=== PATIENT | female | born 1995 | race Caucasian/White ===

== ENCOUNTER 2017-01-30 15:32 | Emergency (ER) | payer OTHER ==
--- NOTE | 2017-01-30 16:14 | ER Document Report ---
Doctor's Note Notes: 01/30/17 16:14 Patient noted to have 2 syncopal episodes states she keeps falling to the left side I have greeted and performed a rapid initial assessment of this patient. A comprehensive ED assessment and evaluation of the patient, analysis of test results and completion of the medical decision making process will be conducted by additional ED providers. PHYSICAL EXAMINATION: GENERAL: Well-appearing, well-nourished and in no acute distress. HEAD: Atraumatic, normocephalic. EYES: Pupils equal round extraocular movements intact, conjunctiva are normal. ENT: Nares patent NECK: Normal range of motion LUNGS: No respiratory distress Musculoskeletal: Normal range of motion NEUROLOGICAL: Patient stood up and fell immediately to the left PSYCH: Normal mood, normal affect. SKIN: Warm, Dry, normal turgor, no rashes or lesions noted.
--- NOTE | 2017-01-30 16:38 | RADIOLOGY REPORT (SQ) ---
EXAM DESCRIPTION: CT HEAD WITHOUT COMPLETED DATE/TIME: 01/30/2017 4:21 pm REASON FOR STUDY: falling to left side COMPARISON: None. TECHNIQUE: Axial images acquired through the brain without intravenous contrast. Images reviewed wi th bone, brain and subdural windows. Images stored on PACS. All CT scanners at this facility use dose modulation, iterative reconstruction, and/or weight based d osing when appropriate to reduce radiation dose to as low as reasonably achievable (ALARA). [facility]: Dose Right [facility]: CareDose [facility]: Dose Right [facility]: Teradose 4D [facility]: [employer] RADIATION DOSE: Up-to-date CT equipment and radiation dose reduction techniques were employed. CTDIv ol: 64.6 mGy. DLP: 1163 mGy-cm. mGy. LIMITATIONS: None. FINDINGS: VENTRICLES: Normal size and contour. CEREBRUM: No masses. No hemorrhage. No midline shift. Normal bonds/white matter differentiation. N o evidence for acute infarction. CEREBELLUM: No masses. No hemorrhage. No alteration of density. No evidence for acute infarction. EXTRAAXIAL SPACES: No fluid collections. No masses. ORBITS AND GLOBE: No intra- or extraconal masses. Normal contour of globe without masses. CALVARIUM: No fracture. PARANASAL SINUSES: No fluid or mucosal thickening. SOFT TISSUES: No mass or hematoma. OTHER: No other significant finding. IMPRESSION: No acute intracranial finding. TECHNICAL DOCUMENTATION: JOB ID: [id number] Quality ID # [id number]: Final reports with documentation of one or more dose reduction techniques (e.g., Au tomated exposure control, adjustment of the mA and/or kV according to patient size, use of iterative reconstruction technique) 2010 [employer]- All Rights Reserved
--- NOTE | 2017-01-30 16:40 | RADIOLOGY REPORT (SQ) ---
EXAM DESCRIPTION: CHEST SINGLE VIEW COMPLETED DATE/TIME: 01/30/2017 4:27 pm REASON FOR STUDY: falling to left side COMPARISON: None. EXAM PARAMETERS: NUMBER OF VIEWS: One view. TECHNIQUE: Single frontal radiographic view of the chest acquired. RADIATION DOSE: NA LIMITATIONS: None. FINDINGS: LUNGS AND PLEURA: No opacities, masses or pneumothorax. No pleural effusion. MEDIASTINUM AND HILAR STRUCTURES: No masses. Contour normal. HEART AND VASCULAR STRUCTURES: Heart normal in size. Normal vasculature. BONES: No acute findings. HARDWARE: None in the chest. OTHER: No other significant finding. IMPRESSION: NO ACUTE RADIOGRAPHIC FINDING IN THE CHEST. TECHNICAL DOCUMENTATION: JOB ID: [id number]
[2017-01-30 16:47] LABS: ABSOLUTE EOSINOPHILS # (AUTO) 0.1 10^3/uL (0.0-0.6); ABSOLUTE LYMPHOCYTES (AUTO) 2.7 10^3/uL (0.5-4.7); ABSOLUTE MONOCYTES (AUTO) 0.6 10^3/uL (0.1-1.4); ABSOLUTE NEUT (AUTO) 2.5 10^3/uL (1.7-8.2); BASOPHILS % (AUTO) 0.5 % (0-2); EOSINOPHILS % (AUTO) 1.2 % (0-6); HEMATOCRIT 38.1 % (36.0-47.0); HGB HCT DIFFERENCE 0.9; MEAN CORPUSCULAR HEMOGLOBIN 30.2 pg (27.0-33.4); MEAN CORPUSCULAR VOLUME 89 fl (80-97); MONOCYTES % (AUTO) 9.8 % (3-13); RED CELL DISTRIBUTION WIDTH 12.8 % (11.5-14.0); SEGMENTED NEUTROPHILS % (AUTO) 42.5 % (42-78); WHITE BLOOD COUNT 5.8 10^3/uL (4.0-10.5)
[2017-01-30 16:51] LABS: PROTHROMBIN TIME 12.2 SEC (11.4-15.4)
[2017-01-30 16:52] LABS: PARTIAL THROMBOPLASTIN TIME 28.1 SEC (23.5-35.8)
[2017-01-30] MEDS ORDERED: NORMAL SALINE 1000 ML 1,000 ML IV ONE ×2 (16:55→18:32)
--- NOTE | 2017-01-30 16:56 | ER Document Report ---
ED Syncope and Near Syncope - General Information source: Patient TRAVEL OUTSIDE OF THE [place] IN LAST 30 DAYS: No - HPI Patient complains to provider of: Fainting Symptoms prior to episode: No: Headache, Nausea/vomiting Current symptoms: Other - see above <WYATT HEWITT - Last Filed: 01/30/17 20:52> <REAGANKERRI SANDRA - Last Filed: 01/30/17 23:32> - General Chief Complaint: Syncope Stated Complaint: SYNCOPE Time Seen by Provider: 01/30/17 16:13 Notes: Patient is a 21 year old female who presents to the ED with complaints of 2 syncopal episodes where patient fell to the left prior to arrival today. Patient states the first episode was while she was bent over and the second was while she was walking and she lost her vision causing her to fall into the doorway. Patient states she has never had this in the past. Patient denies any injuries from the falls. Patient has a history of hearing loss and is suppose to wear hearing aids in her bilateral ears but is currently only wearing one in the left secondary to her dog eating her right one. Patient states she has been without her right hearing aid for the past year but she is currently working on getting a replacement. Patient denies a feeling a fullness in her ears or ear pain and states she doesn't normally have fluid behind her ear drums. Patient has been on depression and anxiety medication for the past 12 years and denies any recent changes. Patient has had tubes in her ears as an infant. Patient denies any nausea, vomiting, diarrhea, urinary symptoms, back pain, headache, or any chance of . Patient states she is starting to feel "some" better now but the initial onset of her symptoms was 2.5 hours ago. Patient states her normal blood pressure is 120/60 and states her blood pressure after her syncopal episodes was 160/90. No other concerns or complaints at this time. (WYATT HEWITT) Past Medical History - General Information source: Patient - Social History Smoking Status: Unknown if Ever Smoked Family History: None Patient has suicidal ideation: No Patient has homicidal ideation: No EENT Medical History: Reports: Other - hearing loss Renal/ Medical History: Denies: Hx Peritoneal Dialysis Psychiatric Medical History: Reports: Hx Depression <WYATT HEWITT - Last Filed: 01/30/17 20:52> Review of Systems - Review of Systems Constitutional: No symptoms reported EENT: No symptoms reported, Double vision. denies: Ear pain Cardiovascular: See HPI, Syncope Respiratory: No symptoms reported Gastrointestinal: No symptoms reported. denies: Diarrhea, Nausea, Vomiting Genitourinary: See HPI. denies: Burning, Dysuria, Frequency, Hematuria, Incontinence, Urgency Female Genitourinary: See HPI. denies: Musculoskeletal: See HPI. denies: Back pain Skin: No symptoms reported Hematologic/Lymphatic: No symptoms reported Neurological/Psychological: See HPI. denies: Headaches <WYATT HEWITT - Last Filed: 01/30/17 20:52> Physical Exam - Vital signs Interpretation: Normal - General General appearance: Appears well, Alert - HEENT Head: Normocephalic, Atraumatic Eyes: Normal Pupils: PERRL Tympanic membrane: Other - Fluid behind left ear with fluid level. Hearing aid - Respiratory Respiratory status: No respiratory distress Chest status: Nontender Breath sounds: Normal Chest palpation: Normal - Cardiovascular Rhythm: Regular Heart sounds: Normal auscultation Murmur: No - Abdominal Inspection: Normal Distension: No distension Bowel sounds: Normal Tenderness: Nontender Organomegaly: No organomegaly - Back Back: Normal, Nontender - Extremities General upper extremity: Normal inspection, Nontender, Normal color, Normal ROM , Normal temperature General lower extremity: Normal inspection, Nontender, Normal color, Normal ROM , Normal temperature, Normal weight bearing. No: Lillian's sign - Neurological Neuro grossly intact: Yes Cognition: Normal Orientation: AAOx4 [place] Coma Scale Eye Opening: Spontaneous [place] Coma Scale Verbal: Oriented [place] Coma Scale Motor: Obeys Commands [place] Coma Scale Total: 15 Speech: Normal Motor strength normal: LUE, RUE, LLE, RLE Sensory: Normal - Psychological Associated symptoms: Normal affect, Normal mood - Skin Skin Temperature: Warm Skin Moisture: Dry Skin Color: Normal <KERRI KIRK - Last Filed: 01/30/17 23:32> - Vital signs Vitals: Pulse Resp BP Pulse Ox 69 14 112/70 99 01/30/17 15:47 01/30/17 15:47 01/30/17 15:47 01/30/17 15:47 Course - Laboratory Result Diagrams: 01/30/17 16:35 01/30/17 16:35 <WYATT HEWITT - Last Filed: 01/30/17 20:52> - Laboratory Result Diagrams: 01/30/17 16:35 01/30/17 16:35 <KERRI KIRK - Last Filed: 01/30/17 23:32> - Re-evaluation Re-evalutation: 01/30/17 19:53 Patient states her symptoms have improved and the room is no longer spinning. Patient received Meclazine. 01/30/17 20:52 Patient is improved and would like to be discharged home. (WYATT HEWITT) No acute findings on imaging or blood work. Patient feels better after meclizine. Of note, she is only wearing one hearing aid at this time in the left ear which has some fluid behind it. This could be contributing to vertigo. Patient is instructed to take meclizine. She will be given a work note and is to follow-up with her doctor. Stable for discharge. (KERRI KIRK) - Vital Signs Vital signs: Temp Pulse Resp BP Pulse Ox 72 17 103/65 99 01/30/17 20:13 01/30/17 21:01 01/30/17 21:01 01/30/17 21:01 - Laboratory Laboratory results interpreted by me: 01/30/17 01/30/17 16:35 20:25 Lymphocytes % 46.0 H Urine Blood MODERATE H Discharge <WYATT HEWITT - Last Filed: 01/30/17 20:52> <KERRI KIRK - Last Filed: 01/30/17 23:32> - Discharge Clinical Impression: Pre-syncope Condition: Stable Disposition: HOME, SELF-CARE Instructions: Near Syncopal Episode ([facility]), Vertigo ([facility]) Prescriptions: Meclizine HCl 12.5 mg PO TID #30 tablet Forms: Return to Work Referrals: HARSHAD GUERRA PA-C [Primary Care Provider] - Follow up tomorrow Scribe Attestation: 01/30/17 23:32 I personally performed the services described in the documentation, reviewed and edited the documentation which was dictated to the scribe in my presence, and it accurately records my words and actions. (KERRI KIRKibe Documentation - Scribe Written by Shayan:: shayan Arora, 01/30/2017 acting as scribe for :: Reagan <WYATT HEWITT - Last Filed: 01/30/17 20:52>
[2017-01-30 17:04] LABS: ALANINE AMINOTRANSFERASE 30 U/L (9-52); ALBUMIN 3.5 g/dL (3.5-5.0); ALKALINE PHOSPHATASE 38 U/L (38-126); ANION GAP 6 (5-19); ASPARTATE AMINO TRANSFERASE 24 U/L (14-36); BILIRUBIN,DIRECT 0.2 mg/dL (0.0-0.4); BILIRUBIN,TOTAL 0.3 mg/dL (0.2-1.3); BLOOD UREA NITROGEN 9 mg/dL (7-20); CALCIUM 8.9 mg/dL (8.4-10.2); CARBON DIOXIDE 26 mmol/L (22-30); CHLORIDE 106 mmol/L (98-107); CREATINE KINASE 75 U/L (30-135); CREATININE RESULT 0.76 mg/dL (0.52-1.25); GLUCOSE 82 mg/dL (75-110); POTASSIUM 3.7 mmol/L (3.6-5.0); SODIUM 138.3 mmol/L (137-145); TOTAL PROTEIN 6.6 g/dL (6.3-8.2)
[2017-01-30 17:16] LABS: CREATINE KINASE MB 0.56 ng/mL (<4.55)
[2017-01-30 17:17] LABS: TROPONIN I < 0.012 ng/mL
[2017-01-30] MEDS ORDERED: MECLIZINE HCL 12.5 MG TABLET PO ONE (17:46)
--- NOTE | 2017-01-30 17:58 | EKG REPORT ---
SEVERITY:- NORMAL ECG - SINUS RHYTHM : Confirmed by: Tani Wilder MD 30-Jan-2017 17:57:45
[2017-01-30] MEDS ORDERED: MECLIZINE HCL 12.5 MG TABLET ONE (18:36)
[2017-01-30 20:53] LABS: APPEARANCE,URINE CLEAR; BILIRUBIN,URINE NEGATIVE (NEGATIVE); GLUCOSE, URINE NEGATIVE (NEGATIVE); KETONES,URINE NEGATIVE (NEGATIVE); LEUKOCYTE ESTERASE,URINE NEGATIVE (NEGATIVE); NITRITE,URINE NEGATIVE (NEGATIVE); PROTEIN,URINE NEGATIVE (NEGATIVE); URINE SPECIFIC GRAVITY 1.005; UROBILINOGEN,URINE NEGATIVE mg/dL (<2.0)
[2017-01-30 21:19] VITALS: BP 103/65
== END 2017-01-30 21:22 | disposition home or self-care (01) ==
LOC: ER 15:32
DX: R55 Syncope and collapse (principal); H91.90 Unspecified hearing loss, unspecified ear; Z91.19 Patient's noncompliance with other medical treatment and regimen; F41.9 Anxiety disorder, unspecified; F32.9 Major depressive disorder, single episode, unspecified; Z79.899 Other long term (current) drug therapy
CPT/HCPCS: 93005; 99285; 36415; 82553; 82550; 84702; 84443; 85025; 85610; 85730; 80053; 81001; 84484; 71010; 70450; 93010; J3490; J7030

== ENCOUNTER 2017-02-01 06:44 | Emergency (ER) | payer OTHER ==
[2017-02-01] MEDS ORDERED: ONDANSETRON 4 MG TAB.RAPDIS PO ONE (07:09)
[2017-02-01] MEDS ORDERED: PROCHLORPERAZINE MALEATE 10 MG TABLET PO ONE (07:10)
--- NOTE | 2017-02-01 07:13 | ER Document Report ---
ED General - General Chief Complaint: Headache Stated Complaint: HEADACHE Time Seen by Provider: 02/01/17 07:02 TRAVEL OUTSIDE OF THE [place] IN LAST 30 DAYS: No - HPI Patient complains to provider of: Headache Notes: Patient coming in for evaluation of headache. Patient was seen Tuesday prior to arrival for her syncope presyncope workup. Patient has had CT chest x-ray basic laboratory studies are all returned negative. Patient states they prior to arrival developed a global headache. Patient denies any associated symptoms denies photophobia nausea vomiting diarrhea denies any other head trauma patient was able to drive herself here to the ER. Patient denies fevers chills. Upon my evaluation patient looks incredibly well discussing her case with the registration staff patient again reiterates that her headache is global. No relief with ibuprofen at home. Patient is in no obvious distress - Related Data Allergies/Adverse Reactions: amoxicillin Allergy (Verified 02/01/17 06:51) ciprofloxacin [From Cipro] Allergy (Verified 02/01/17 06:51) Home Medications: Current Home Medications Norgestimate-Ethinyl Estradiol [Tri-Linyah Tablet] 1 tab PO DAILY 02/01/17 [ History] Sertraline HCl [Sertraline HCl] 125 mg PO DAILY 02/01/17 [History] Past Medical History - Social History Smoking Status: Unknown if Ever Smoked Family History: None Patient has suicidal ideation: No Patient has homicidal ideation: No Renal/ Medical History: Denies: Hx Peritoneal Dialysis Psychiatric Medical History: Reports: Hx Depression Review of Systems - Review of Systems Constitutional: No symptoms reported EENT: No symptoms reported Cardiovascular: No symptoms reported Respiratory: No symptoms reported Gastrointestinal: No symptoms reported Genitourinary: No symptoms reported Female Genitourinary: No symptoms reported Musculoskeletal: No symptoms reported Skin: No symptoms reported Hematologic/Lymphatic: No symptoms reported Neurological/Psychological: Headaches -: Yes All other systems reviewed and negative Physical Exam - Vital signs Vitals: Temp Pulse Resp BP Pulse Ox 98.1 F 73 18 112/64 97 02/01/17 06:48 02/01/17 06:48 02/01/17 06:48 02/01/17 06:48 02/01/17 06:48 Interpretation: Normal - General General appearance: Appears well, Alert - HEENT Head: Normocephalic, Atraumatic Eyes: Normal Conjunctiva: Normal Cornea: Normal Extraocular movements intact: Yes Eyelashes: Normal Pupils: PERRL Anterior chamber: Normal Fundascopic: Normal Mucous membranes: Normal Pharynx: Normal Neck: Normal - Respiratory Respiratory status: No respiratory distress Chest status: Nontender Breath sounds: Normal Chest palpation: Normal - Cardiovascular Rhythm: Regular Heart sounds: Normal auscultation Murmur: No - Abdominal Inspection: Normal Distension: No distension Bowel sounds: Normal Tenderness: Nontender Organomegaly: No organomegaly - Back Back: Normal, Nontender - Extremities General upper extremity: Normal inspection, Nontender, Normal color, Normal ROM , Normal temperature General lower extremity: Normal inspection, Nontender, Normal color, Normal ROM , Normal temperature, Normal weight bearing. No: Lillian's sign - Neurological Neuro grossly intact: Yes Cognition: Normal Orientation: AAOx4 [place] Coma Scale Eye Opening: Spontaneous [place] Coma Scale Verbal: Oriented [place] Coma Scale Motor: Obeys Commands [place] Coma Scale Total: 15 Speech: Normal Motor strength normal: LUE, RUE, LLE, RLE Sensory: Normal Knee - Reflex grade: 2 = Normal - Psychological Associated symptoms: Normal affect, Normal mood - Skin Skin Temperature: Warm Skin Moisture: Dry Skin Color: Normal Course - Re-evaluation Re-evalutation: 02/01/17 07:12 We will give the patient oral Zofran and Compazine no critical pathology seen I did review the patient's previous visit 02/01/17 08:41 The patient presents with headache without signs of [employer] bleed, stroke, infection , or other serious etiology. The patient is neurologically intact. Given the extremely low risk of these diagnoses further testing and evaluation for these possibilities does not appear to be indicated at this time. The patient has been instructed to return if the symptoms worsen or change in any way.. Patient sleeping on evaluation headache improved will discharge home Compazine and Zofran. - Vital Signs Vital signs: Temp Pulse Resp BP Pulse Ox 98.3 F 80 18 104/54 L 97 02/01/17 08:49 02/01/17 08:49 02/01/17 08:49 02/01/17 08:49 02/01/17 08:49 Discharge - Discharge Clinical Impression: Headache Qualifiers: Headache type: unspecified Headache chronicity pattern: unspecified pattern Intractability: not intractable Qualified Code(s): R51 - Headache Condition: Good Disposition: HOME, SELF-CARE Instructions: Headache ([facility]) Additional Instructions: Please take the Zofran and Compazine together for your headaches. Return to the ER symptoms worsen follow-up with your primary care physician. Prescriptions: Ondansetron [Zofran Odt 4 mg Tablet] 1 tab PO Q6 #15 tab.rapdis Prochlorperazine Maleate [Compazine] 5 mg PO Q6 #15 tablet Forms: Return to Work
[2017-02-01 08:50] VITALS: BP 104/54
== END 2017-02-01 08:50 | disposition home or self-care (01) ==
LOC: ER 06:44
DX: R51 Headache (principal); Z88.0 Allergy status to penicillin; Z88.3 Allergy status to other anti-infective agents
CPT/HCPCS: 99283; S0119; S0183

== ENCOUNTER → 2017-12-15 | Outpatient (CLI) | payer OTHER ==
--- NOTE | 2017-12-16 08:31 | RADIOLOGY REPORT (SQ) ---
EXAM DESCRIPTION: MRI RT LOWER JOINT WITHOUT COMPLETED DATE/TIME: 12/15/2017 8:03 pm REASON FOR STUDY: S93.401D SPRAIN OF UNSPECIFIED LIGAMENT OF RIGHT ANKLE, SUBS ENCNTR S93.401D SPRA IN OF UNSPECIFIED LIGAMENT OF RIGHT ANKLE, SUBS COMPARISON: None. TECHNIQUE: Right ankle images acquired and stored on PACS. Multiplanar images include fat sensitive sequences as T1, fluid sensitive sequences as FST2/STIR, cartilage sensitive sequences as FSPD, and g radient echo sequences. LIMITATIONS: None. FINDINGS: BONE MARROW: Minimal increased signal in the marrow of the talar head and neck, likely phy siologic. No fracture. No worrisome bone lesion. . EFFUSIONS: No subtalar or tibiotalar effusions. No loose bodies. OSSEOUS ARTICULATIONS: Normal tibiotalar, subtalar, talonavicular and calcaneocuboid joints. TALAR DOME AND TIBIAL PLAFOND: Normal cartilage. No osteochondral defect. ACHILLES TENDON: Intact without partial or full-thickness tear. No adjacent bursal fluid or edema. TIBIALIS ANTERIOR TENDON: Intact without edema at the 1st MT attachment. TIBIALIS POSTERIOR TENDON: Normal morphology and no edema at the navicular attachment. No tendon diaz th fluid. FLEXOR HALLUCIS LONGUS AND FLEXOR DIGITORUM TENDONS: Normal morphology and no tendon sheath fluid. No edema of the os trigonum. PERONEUS LONGUS AND BREVIS TENDON: Normal morphology and no tendon sheath fluid. No subluxation. ATFL, CFL, PTFL: Intact. No thickening or signal alteration. No taiwo-ligamentous fluid. DELTOID LIGAMENT: Thickening and scar in the deep fibers of the deltoid ligament suggesting previous injury. No suggestion of significant regional edema. TARSAL TUNNEL: No masses. No muscle atrophy. SINUS TARSI: No fluid. No reactive marrow edema or erosions. PLANTAR FASCIA: No signal alteration or tear. ADJACENT SOFT TISSUES: No masses. OTHER: No other significant finding. IMPRESSION: 1. Thickening and scar suggested in the deep fibers of the deltoid ligament, likely rel ated to significant previous injury. 2. Ligaments and tendons otherwise intact. TECHNICAL DOCUMENTATION: JOB ID: [id number] [employer]- All Rights Reserved Reading location - IP/workstation name: [facility]
== END ==
LOC: RAD 19:31
PROVIDERS: ATTEND Orthopaedic Surgery
DX: S93.401D Sprain of unspecified ligament of right ankle, subsequent encounter (principal); X58.XXXD Exposure to other specified factors, subsequent encounter